=== PATIENT | female | born 1970 | race Caucasian/White ===

== ENCOUNTER 2018-05-11 11:31 | Inpatient (IN) | payer OTHER ==
[~2018-05-11] VITALS: Ht 162.6 cm; Wt 87.3 kg
[~2018-05-11 11:31] MED LIST: AMLO2.5T45 PO; ATOR20TA PO; CYTO5 PO; LEVO100V4 PO; LISI10TA5 PO; OMEP20CA10 PO
[2018-05-11] MEDS ORDERED: SODIUM CHLORIDE 0.9% 1,000 ML IV ONE (11:42)
[2018-05-11 11:59] LABS: EOSINOPHILS % 2.3 % (0.0-5.0); HEMATOCRIT. 25.1 % (36.0-48.0); LYMPHOCYTES % 13.8 % (20.0-50.0); MEAN CORPUSCULAR HEMOGLOBIN 27.4 pg (28.0-32.0); MEAN CORPUSCULAR VOLUME 86.5 fL (81.0-99.0); MEAN PLATELET VOLUME 8.1 fl (7.4-10.4); MONOCYTES % 6.7 % (2.0-8.0); NEUTROPHILS % 76.2 % (40.0-76.0); PLATELET 296 x1000/uL (130-400)
[2018-05-11 12:03] LABS: CHLORIDE 114 mEq/L (98-107)
[2018-05-11 12:06] LABS: PARTIAL THROMBOPLASTIN TIME 28.4 sec (23.4-31.0)
[2018-05-11 12:08] LABS: ETHANOL BLOOD < 10 mg/dL
[2018-05-11 12:34] LABS: T4 FREE 0.42 ng/dL (0.76-1.46)
[2018-05-11 12:37] LABS: HCG SCREEN NEGATIVE
[2018-05-11 14:53] LABS: *AMPHETAMINES SCREEN URINE NEGATIVE (NEGATIVE); *BARBITURATES SCREEN URINE NEGATIVE (NEGATIVE); *BENZODIAZEPINES SCREEN URINE NEGATIVE (NEGATIVE); *COCAINE SCREEN URINE NEGATIVE (NEGATIVE)
[2018-05-11 14:54] LABS: CANNABINOID URINE SCREEN NEGATIVE (NEGATIVE); METHADONE URINE SCREEN NEGATIVE (NEGATIVE); OPIATES URINE SCREEN NEGATIVE (NEGATIVE); PHENCYCLIDINE URINE SCREEN NEGATIVE (NEGATIVE)
[2018-05-11] MEDS ORDERED: ONDANSETRON HCL 4MG/2ML INJ IV PRN (16:30)
[2018-05-11] MEDS ORDERED: ACETAMINOPHEN 325MG TABLET PO PRN (16:30)
[2018-05-11] MEDS ORDERED: CLONIDINE 0.1MG TABLET PO PRN (16:30)
[2018-05-11] MEDS: LEVOTHYROXINE SODIUM 75MCG TABLET PO SCH (17:14)
[2018-05-11 17:37] LABS: TOTAL IRON BINDING CAPACITY 232 ug/dL (250-450)
[2018-05-11 17:40] LABS: CREATINE KINASE 586 IU/L (26-192)
[2018-05-11] MEDS ORDERED: LEVOTHYROXINE SODIUM 100MCG TABLET PO ONE (18:00)
[2018-05-11] MEDS: ATORVASTATIN CALCIUM 20MG TABLET PO SCH (23:44)
[2018-05-12] VITALS (11 sets, daily range): BP systolic 109–156; BP diastolic 50–70
[2018-05-12] MEDS ORDERED: ZOLPIDEM TARTRATE 5MG TABLET PO PRN (00:58)
[2018-05-12] MEDS: OMEPRAZOLE 20MG CAPSULE EXTENDED RELEASE PO SCH (01:56)
[2018-05-12] MEDS ORDERED: HYDR100T26 PO (05:47)
[2018-05-12] MEDS ORDERED: FURO80TA3 PO (05:47)
[2018-05-12] MEDS ORDERED: LIP40 PO (05:47)
[2018-05-12] MEDS ORDERED: GLIP2.5T3 PO (05:47)
[2018-05-12] MEDS: LEVOTHYROXINE SODIUM 75MCG TABLET PO SCH (06:21)
[2018-05-12 07:17] LABS: CHLORIDE 117 mEq/L (98-107)
[2018-05-12 07:30] LABS: PHOSPHORUS 7.9 mg/dL (2.5-4.9)
[2018-05-12] MEDS: DOCUSATE SODIUM 100MG CAPSULE PO SCH ×2 (09:28→18:24)
[2018-05-12] MEDS: AMLODIPINE 5MG TABLET PO SCH ×2 (09:28→21:39)
[2018-05-12] MEDS ORDERED: LEVOTHYROXINE SODIUM 25MCG TABLET PO NR (09:30)
[2018-05-12 10:50] LABS: BASOPHILS % 1.4 % (0.0-2.0); EOSINOPHILS % 3.7 % (0.0-5.0); HEMATOCRIT. 22.1 % (36.0-48.0); LYMPHOCYTES % 18.1 % (20.0-50.0); MEAN CORPUSCULAR HEMOGLOBIN 27.7 pg (28.0-32.0); MEAN CORPUSCULAR VOLUME 86.7 fL (81.0-99.0); MEAN PLATELET VOLUME 8.7 fl (7.4-10.4); NEUTROPHILS % 69.8 % (40.0-76.0); PLATELET 243 x1000/uL (130-400); RED BLOOD CELL COUNT 2.55 mill/uL (4.2-5.4)
[2018-05-12] MEDS ORDERED: FERROUS SULFATE 325MG TABLET PO SCH (12:50)
[2018-05-12] MEDS: GUAIFENESIN-DM 200MG-20MG/10ML UDC PO PRN (13:13)
[2018-05-12] MEDS: FERROUS SULFATE 325MG TABLET PO SCH ×2 (13:13→18:24)
[2018-05-12] MEDS ORDERED: ALBUMIN HUMAN 25GM/100ML (25%) IV NR (14:00)
[2018-05-12 14:27] LABS: BG BASE EXCESS -8.1 mmol/L (-2.0-2.0); BG CARBOXYHEMOGLOBIN 0.7 % (0.5-1.5); BG DEOXYHEMOGLOBIN 7.3 % (0.0-5.0); BG FRACTION INSPIRED OXYGEN 21; BG HCO3 ACT 17.1 mmol/L (22.0-26.0); BG METHEMOGLOBIN 0.1 % (0.0-1.5); BG OXYGEN SATURATION 92.6 % (92.0-98.5); BG OXYHEMOGLOBIN 91.9 % (94.0-97.0); BG PCO2 33.5 mmHg (35.0-45.0); BG PH 7.327 (7.350-7.450); BG PO2 71.3 mmHg (75.0-100.0); BG SAMPLE SITE RIGHT BRACHIAL; BG TOTAL HEMOGLOBIN 6.9 g/dL (12.0-18.0); BG VENT MODE ROOM AIR
[2018-05-12] MEDS: CITRIC ACID/SODIUM CITRATE SOLN 30ML UDC PO SCH ×2 (14:34→18:24)
[2018-05-12] MEDS: DEXT 5%/0.45% NACL 1000ML 1,000 ML IV SCH (14:35)
[2018-05-12 14:50] LABS: CLARITY URINE CLEAR (CLEAR); COLOR URINE YELLOW (YELLOW); KETONES URINE NEGATIVE (NEGATIVE); LEUKOCYTE ESTERASE URINE NEGATIVE (NEGATIVE); NITRITE URINE NEGATIVE (NEGATIVE); OCCULT BLOOD URINE 2+ (NEGATIVE); PH URINE >=9.0 (4.5-8.0); PROTEIN URINE 4+ (NEGATIVE); SPECIFIC GRAVITY URINE 1.018 (1.005-1.030); UROBILINOGEN URINE 0.2 E.U./dL (0.2-1.0)
[2018-05-12] MEDS ORDERED: DOCUSATE SODIUM 100MG CAPSULE PO SCH (17:00)
[2018-05-12] MEDS: CALCIUM ACETATE 667MG CAPSULE PO SCH (18:24)
[2018-05-12 19:35] LABS: HEMATOCRIT 25.9 % (36.0-48.0); HEMOGLOBIN 8.4 g/dL (12.0-16.0)
[2018-05-12 19:47] LABS: PROTHROMBIN TIME 10.3 sec (9.1-11.1)
[2018-05-12] MEDS ORDERED: EPOETIN ALFA 10000UNITS/ML VIAL SUBCUT NR (21:00)
[2018-05-12] MEDS: ATORVASTATIN CALCIUM 20MG TABLET PO SCH (21:39)
[2018-05-13] VITALS: BP 134/55
[2018-05-13] MEDS: GUAIFENESIN-DM 200MG-20MG/10ML UDC PO PRN ×3 (02:17→18:24)
[2018-05-13 04:00] VITALS: BP 152/93
[2018-05-13 06:22] LABS: PHOSPHORUS 7.5 mg/dL (2.5-4.9)
[2018-05-13 06:39] LABS: BASOPHILS % 0.9 % (0.0-2.0); HEMATOCRIT. 22.2 % (36.0-48.0); HEMOGLOBIN. 7.3 g/dL (12.0-16.0); MEAN CORPUSCULAR HEMOGLOBIN 28.1 pg (28.0-32.0); MEAN CORPUSCULAR VOLUME 85.9 fL (81.0-99.0); MEAN PLATELET VOLUME 8.5 fl (7.4-10.4); MONOCYTES % 7.9 % (2.0-8.0); NEUTROPHILS % 68.2 % (40.0-76.0); PLATELET 217 x1000/uL (130-400); RED BLOOD CELL COUNT 2.58 mill/uL (4.2-5.4); RED CELL DISTRIBUTION WIDTH 14.6 % (11.6-14.6)
[2018-05-13] MEDS: LEVOTHYROXINE SODIUM 150MCG TABLET PO SCH (07:13)
[2018-05-13] MEDS: OMEPRAZOLE 20MG CAPSULE EXTENDED RELEASE PO SCH (07:13)
[2018-05-13] MEDS ORDERED: LEVOTHYROXINE SODIUM 100MCG TABLET PO SCH (07:20)
[2018-05-13 07:56] VITALS: BP 142/65
[2018-05-13] MEDS: CALCIUM ACETATE 667MG CAPSULE PO SCH ×3 (08:29→18:24)
[2018-05-13] MEDS: AMLODIPINE 5MG TABLET PO SCH ×2 (08:29→21:01)
[2018-05-13] MEDS: FERROUS SULFATE 325MG TABLET PO SCH ×3 (08:29→18:24)
[2018-05-13] MEDS: CITRIC ACID/SODIUM CITRATE SOLN 30ML UDC PO SCH ×3 (08:29→18:24)
[2018-05-13] MEDS: DOCUSATE SODIUM 100MG CAPSULE PO SCH ×2 (08:32→17:00)
[2018-05-13 12:21] VITALS: BP 181/85
[2018-05-13 15:55] VITALS: BP 140/60
[2018-05-13] MEDS: DEXT 5%/0.45% NACL 1000ML 1,000 ML IV SCH (18:29)
[2018-05-13 20:00] VITALS: BP 159/63
[2018-05-13] MEDS: ATORVASTATIN CALCIUM 20MG TABLET PO SCH (21:00)
[2018-05-14] VITALS (20 sets, daily range): BP systolic 135–177; BP diastolic 56–84
[2018-05-14] MEDS: OMEPRAZOLE 20MG CAPSULE EXTENDED RELEASE PO SCH (06:21)
[2018-05-14] MEDS: LEVOTHYROXINE SODIUM 150MCG TABLET PO SCH (06:21)
[2018-05-14] MEDS ORDERED: CEFAZOLIN 1000MG PREMIX 50 ML IV SCH (06:45)
[2018-05-14] MEDS: DEXT 5%/0.45% NACL 1000ML 1,000 ML IV SCH ×2 (07:00→16:52)
[2018-05-14 07:04] LABS: BASOPHILS % 0.8 % (0.0-2.0); EOSINOPHILS % 3.2 % (0.0-5.0); HEMATOCRIT. 24.7 % (36.0-48.0); MEAN CORPUSCULAR HEMOGLOBIN 27.9 pg (28.0-32.0); MEAN CORPUSCULAR VOLUME 86.5 fL (81.0-99.0); MEAN PLATELET VOLUME 8.5 fl (7.4-10.4); MONOCYTES % 8.5 % (2.0-8.0); NEUTROPHILS % 70.5 % (40.0-76.0); PLATELET 246 x1000/uL (130-400); RED BLOOD CELL COUNT 2.86 mill/uL (4.2-5.4); RED CELL DISTRIBUTION WIDTH 14.9 % (11.6-14.6)
[2018-05-14 07:29] LABS: PHOSPHORUS 6.5 mg/dL (2.5-4.9)
[2018-05-14] MEDS ORDERED: FENTANYL CITRATE/PF 50MCG/ML 2ML VIAL ONE (07:39)
[2018-05-14] MEDS ORDERED: LIDOCAINE HCL 1% 20ML VIAL (Pyxis) INJ ONE (07:39)
[2018-05-14] MEDS ORDERED: CEFAZOLIN 1000MG PREMIX 50 ML IV ONE (07:39)
[2018-05-14] MEDS ORDERED: SODIUM BICARBONATE 4% (2.4MEQ) 5ML VIAL IV ONE (07:39)
[2018-05-14] MEDS ORDERED: FENTANYL CITRATE/PF 50MCG/ML 2ML VIAL IV ONE (08:30)
[2018-05-14] MEDS: DOCUSATE SODIUM 100MG CAPSULE PO SCH ×2 (09:00→16:55)
[2018-05-14] MEDS: CITRIC ACID/SODIUM CITRATE SOLN 30ML UDC PO SCH ×3 (09:00→16:55)
[2018-05-14] MEDS ORDERED: ONDANSETRON HCL 4MG/2ML INJ ONE (09:09)
[2018-05-14] MEDS ORDERED: ONDANSETRON HCL 4MG/2ML INJ IV ONE (09:15)
[2018-05-14] MEDS: FERROUS SULFATE 325MG TABLET PO SCH ×3 (09:32→16:51)
[2018-05-14] MEDS: CALCIUM ACETATE 667MG CAPSULE PO SCH ×3 (09:32→16:51)
[2018-05-14] MEDS: AMLODIPINE 5MG TABLET PO SCH ×2 (09:32→21:10)
[2018-05-14 14:05] LABS: HEPATITIS B SURFACE AB 5.3 mIU/mL
[2018-05-14] MEDS: ATORVASTATIN CALCIUM 20MG TABLET PO SCH (21:10)
[2018-05-14] MEDS: GUAIFENESIN-DM 200MG-20MG/10ML UDC PO PRN (21:10)
[2018-05-15] VITALS: BP 137/62
[2018-05-15 04:00] VITALS: BP 155/72
[2018-05-15] MEDS: OMEPRAZOLE 20MG CAPSULE EXTENDED RELEASE PO SCH (06:26)
[2018-05-15] MEDS: LEVOTHYROXINE SODIUM 150MCG TABLET PO SCH (06:27)
[2018-05-15 06:31] LABS: BASOPHILS % 0.9 % (0.0-2.0); EOSINOPHILS % 3.4 % (0.0-5.0); HEMATOCRIT. 23.1 % (36.0-48.0); HEMOGLOBIN. 7.6 g/dL (12.0-16.0); LYMPHOCYTES % 17.1 % (20.0-50.0); MEAN CORPUSCULAR HEMOGLOBIN 28.1 pg (28.0-32.0); MEAN CORPUSCULAR VOLUME 85.6 fL (81.0-99.0); MEAN PLATELET VOLUME 8.2 fl (7.4-10.4); MONOCYTES % 10.1 % (2.0-8.0); NEUTROPHILS % 68.5 % (40.0-76.0); PLATELET 214 x1000/uL (130-400); RED CELL DISTRIBUTION WIDTH 14.3 % (11.6-14.6)
[2018-05-15 07:13] LABS: PHOSPHORUS 5.2 mg/dL (2.5-4.9)
[2018-05-15 08:26] VITALS: BP 153/70
[2018-05-15] MEDS: FERROUS SULFATE 325MG TABLET PO SCH ×3 (08:57→18:28)
[2018-05-15] MEDS: CITRIC ACID/SODIUM CITRATE SOLN 30ML UDC PO SCH (08:57)
[2018-05-15] MEDS: CALCIUM ACETATE 667MG CAPSULE PO SCH ×3 (08:57→18:28)
[2018-05-15] MEDS: DOCUSATE SODIUM 100MG CAPSULE PO SCH ×2 (08:58→17:00)
[2018-05-15 12:00] VITALS: BP 144/71
[2018-05-15] MEDS: AMLODIPINE 5MG TABLET PO SCH ×2 (12:15→21:32)
[2018-05-15] MEDS: DEXT 5%/0.45% NACL 1000ML 1,000 ML IV SCH ×2 (12:53→21:33)
[2018-05-15 16:00] VITALS: BP 138/43
[2018-05-15 20:00] VITALS: BP_SYST 130; BP_SYST 138; BP_SYST 143; BP_DIAS 63
[2018-05-15] MEDS: ATORVASTATIN CALCIUM 20MG TABLET PO SCH (21:32)
[2018-05-16] VITALS (9 sets, daily range): BP systolic 120–148; BP diastolic 54–70
[2018-05-16] MEDS: LEVOTHYROXINE SODIUM 150MCG TABLET PO SCH (06:04)
[2018-05-16 07:19] LABS: BASOPHILS % 0.9 % (0.0-2.0); HEMOGLOBIN. 7.8 g/dL (12.0-16.0); MEAN CORPUSCULAR HEMOGLOBIN 27.8 pg (28.0-32.0); MEAN CORPUSCULAR VOLUME 85.3 fL (81.0-99.0); MEAN PLATELET VOLUME 8.6 fl (7.4-10.4); MONOCYTES % 9.6 % (2.0-8.0); NEUTROPHILS % 65.5 % (40.0-76.0); PLATELET 229 x1000/uL (130-400); RED BLOOD CELL COUNT 2.82 mill/uL (4.2-5.4); RED CELL DISTRIBUTION WIDTH 14.6 % (11.6-14.6)
[2018-05-16 07:45] LABS: PHOSPHORUS 4.1 mg/dL (2.5-4.9)
[2018-05-16] MEDS: DOCUSATE SODIUM 100MG CAPSULE PO SCH ×2 (09:00→17:00)
[2018-05-16] MEDS: CALCIUM ACETATE 667MG CAPSULE PO SCH ×3 (09:07→18:28)
[2018-05-16] MEDS: FERROUS SULFATE 325MG TABLET PO SCH ×3 (09:07→18:28)
[2018-05-16] MEDS: AMLODIPINE 5MG TABLET PO SCH ×2 (09:08→20:29)
[2018-05-16] MEDS: FAMOTIDINE 20MG TABLET PO SCH (09:08)
[2018-05-16] MEDS: DEXT 5%/0.45% NACL 1000ML 1,000 ML IV SCH (13:49)
[2018-05-16] MEDS: ATORVASTATIN CALCIUM 20MG TABLET PO SCH (20:29)
[2018-05-17 04:00] VITALS: BP 124/61
[2018-05-17] MEDS: DEXT 5%/0.45% NACL 1000ML 1,000 ML IV SCH ×2 (06:15→14:03)
[2018-05-17] MEDS: LEVOTHYROXINE SODIUM 150MCG TABLET PO SCH (06:16)
[2018-05-17 06:49] LABS: BASOPHILS % 0.9 % (0.0-2.0); EOSINOPHILS % 3.9 % (0.0-5.0); HEMATOCRIT. 23.7 % (36.0-48.0); HEMOGLOBIN. 7.8 g/dL (12.0-16.0); LYMPHOCYTES % 17.6 % (20.0-50.0); MEAN CORPUSCULAR HEMOGLOBIN 28.2 pg (28.0-32.0); MEAN CORPUSCULAR VOLUME 85.7 fL (81.0-99.0); MEAN PLATELET VOLUME 8.4 fl (7.4-10.4); MONOCYTES % 7.8 % (2.0-8.0); NEUTROPHILS % 69.8 % (40.0-76.0); PLATELET 236 x1000/uL (130-400); RED BLOOD CELL COUNT 2.76 mill/uL (4.2-5.4); RED CELL DISTRIBUTION WIDTH 14.4 % (11.6-14.6)
[2018-05-17 07:08] LABS: CHLORIDE 109 mEq/L (98-107)
[2018-05-17 07:18] LABS: PHOSPHORUS 4.4 mg/dL (2.5-4.9)
[2018-05-17 08:00] VITALS: BP 158/74
[2018-05-17] MEDS: DOCUSATE SODIUM 100MG CAPSULE PO SCH ×2 (09:00→17:00)
[2018-05-17] MEDS: FERROUS SULFATE 325MG TABLET PO SCH ×2 (09:16→14:01)
[2018-05-17] MEDS: FAMOTIDINE 20MG TABLET PO SCH (09:16)
[2018-05-17] MEDS: CALCIUM ACETATE 667MG CAPSULE PO SCH ×2 (09:16→14:01)
[2018-05-17] MEDS: AMLODIPINE 5MG TABLET PO SCH (09:16)
[2018-05-17 12:00] VITALS: BP 144/63
[2018-05-17 16:00] VITALS: BP 150/74
[2018-05-17 16:38] VITALS: BP 150/74
[2018-05-18 08:14] LABS: ALBUMIN 2.5 g/dL (2.9-4.4); ALPHA-1-GLOBULIN 0.3 g/dL (0.0-0.4); BETA GLOBULIN 0.9 g/dL (0.7-1.3); GAMMA GLOBULINS 0.5 g/dL (0.4-1.8); GLOBULIN TOTAL 2.6 g/dL (2.2-3.9); M-SPIKE Not Observed g/dL (Not Observed); TOTAL PROTEIN SERUM 5.1 g/dL (6.0-8.5)
== END 2018-05-17 17:14 | disposition home or self-care (01) | DRG 48 ==
LOC: ER 11:31 → 6WST 14:17 → EDBEDREQ 14:22 → ENRESERV 22:09
PROVIDERS: ADMIT Internal Medicine; ATTEND Internal Medicine
PROC: 30233N1 Transfusion of Nonautologous Red Blood Cells into Peripheral Vein, Percutaneous Approach (ICD-10-PCS; principal; 2018-05-12)
PROC: 5A1D70Z Performance of Urinary Filtration, Intermittent, Less than 6 Hours Per Day (ICD-10-PCS; 2018-05-13)
PROC: 5A1D70Z Performance of Urinary Filtration, Intermittent, Less than 6 Hours Per Day (ICD-10-PCS; 2018-05-14)
PROC: 02HV33Z Insertion of Infusion Device into Superior Vena Cava, Percutaneous Approach (ICD-10-PCS; 2018-05-14)
PROC: B5181ZA Fluoroscopy of Superior Vena Cava using Low Osmolar Contrast, Guidance (ICD-10-PCS; 2018-05-14)
PROC: B548ZZA Ultrasonography of Superior Vena Cava, Guidance (ICD-10-PCS; 2018-05-14)
PROC: 5A1D70Z Performance of Urinary Filtration, Intermittent, Less than 6 Hours Per Day (ICD-10-PCS; 2018-05-16)
DX: G90.8 Other disorders of autonomic nervous system (principal); E43 Unspecified severe protein-calorie malnutrition; I13.2 Hypertensive heart and chronic kidney disease with heart failure and with stage 5 chronic kidney disease, or end stage renal disease; N17.9 Acute kidney failure, unspecified; E11.22 Type 2 diabetes mellitus with diabetic chronic kidney disease; E87.0 Hyperosmolality and hypernatremia; I27.20 Pulmonary hypertension, unspecified; E88.81 Metabolic syndrome and other insulin resistance; E86.9 Volume depletion, unspecified; E87.2 Acidosis; E87.8 Other disorders of electrolyte and fluid balance, not elsewhere classified; D64.9 Anemia, unspecified; E78.5 Hyperlipidemia, unspecified; E03.9 Hypothyroidism, unspecified; E66.9 Obesity, unspecified; I50.9 Heart failure, unspecified; E05.00 Thyrotoxicosis with diffuse goiter without thyrotoxic crisis or storm; G62.9 Polyneuropathy, unspecified; Z68.33 Body mass index [BMI] 33.0-33.9, adult; E78.00 Pure hypercholesterolemia, unspecified; F41.9 Anxiety disorder, unspecified; N18.6 End stage renal disease; N25.81 Secondary hyperparathyroidism of renal origin; Z79.890 Hormone replacement therapy; Z82.49 Family history of ischemic heart disease and other diseases of the circulatory system; Z89.429 Acquired absence of other toe(s), unspecified side; Z83.3 Family history of diabetes mellitus; Z71.83 Encounter for nonprocreative genetic counseling; Z79.4 Long term (current) use of insulin
CPT/HCPCS: 36415; 36558; 36600; 71045; 76770; 76937; 77001; 80048; 80305; 80307; 80320; 80329; 82375; 82550; 82570; 82728; 82805; 82962; 83036; 83540; 83550; 83735; 83935; 84100; 84155; 84156; 84165; 84300; 84439; 84443; 84703; 85014; 85018; 85049; 85384; 86706; 86803; 86850; 86900; 86920; 87340; 93005; 93306; 93880; 93970; 96374; 96375; 99152; 99153; 99285; C1750; C1769; J0690; J0885; J1642; J2405; J3010; J3490; J7030; J7050; P9016; P9047; G0480; G0500

== ENCOUNTER 2018-08-24 08:11 | Inpatient (IN) | payer MEDICARE, OTHER ==
[~2018-08-24] VITALS: Ht 152.4 cm; Wt 74.4 kg
[~2018-08-24 08:11] MED LIST changes: -AMLO2.5T45 PO; -ATOR20TA PO; +FURO80TA3 PO; +GLIP2.5T3 PO; +HYDR100T26 PO; +LIP40 PO; -LISI10TA5 PO; -OMEP20CA10 PO
[2018-08-24] MEDS ORDERED: LEVETIRACETAM 1000MG/100ML 100 ML IV ONE (08:30)
[2018-08-24 08:45] LABS: EOSINOPHILS % 1.3 % (0.0-5.0); HEMATOCRIT. 39.3 % (36.0-48.0); HEMOGLOBIN. 12.9 g/dL (12.0-16.0); LYMPHOCYTES % 20.4 % (20.0-50.0); MEAN CORPUSCULAR HEMOGLOBIN 28.2 pg (28.0-32.0); MEAN CORPUSCULAR VOLUME 85.8 fL (81.0-99.0); MEAN PLATELET VOLUME 7.7 fl (7.4-10.4); MONOCYTES % 5.5 % (2.0-8.0); NEUTROPHILS % 71.8 % (40.0-76.0); PLATELET 238 x1000/uL (130-400); RED BLOOD CELL COUNT 4.58 mill/uL (4.2-5.4); RED CELL DISTRIBUTION WIDTH 14.1 % (11.6-14.6)
[2018-08-24 08:48] LABS: CHLORIDE 102 mEq/L (98-107)
[2018-08-24 08:50] LABS: PROTHROMBIN TIME 10.2 sec (9.6-11.0)
[2018-08-24] MEDS: LEVOTHYROXINE SODIUM 75MCG TABLET PO SCH (09:00)
[2018-08-24] MEDS ORDERED: ONDANSETRON HCL 4MG/2ML INJ IV ONE (10:00)
[2018-08-24] MEDS: LOSARTAN POTASSIUM 50 MG TABLET PO SCH (10:21)
[2018-08-24 13:00] VITALS: BP 145/87
[2018-08-24] MEDS ORDERED: MAGNESIUM/ALUMINUM HYDROXIDE/SIMETHICONE 30ML UDC PO PRN (13:00)
[2018-08-24] MEDS ORDERED: ACETAMINOPHEN 325MG TABLET PO PRN (13:00)
[2018-08-24] MEDS ORDERED: GUAIFENESIN 200MG/10ML SUGAR FREE UDC PO PRN (13:00)
[2018-08-24] MEDS ORDERED: DOCUSATE SODIUM 100MG CAPSULE PO PRN (13:00)
[2018-08-24] MEDS ORDERED: IPRATROPIUM/ALBUTEROL 0.5-3(2.5)MG/3ML NEB INH PRN (13:00)
[2018-08-24] MEDS ORDERED: ONDANSETRON HCL 4MG/2ML INJ IV PRN (13:00)
[2018-08-24] MEDS ORDERED: ZOLPIDEM TARTRATE 5MG TABLET PO PRN (13:00)
[2018-08-24] MEDS ORDERED: NITROGLYCERIN 0.4MG TABLET SL SL PRN (13:00)
[2018-08-24] MEDS ORDERED: TRAMADOL 50MG TABLET PO PRN (13:00)
[2018-08-24] MEDS ORDERED: ENOXAPARIN 40MG/0.4ML SYR SUBCUT SCH (13:00)
[2018-08-24] MEDS ORDERED: DEXTROSE 50% WATER 50ML SYRINGE IV PRN (15:00)
[2018-08-24] MEDS: FAMOTIDINE 20MG TABLET PO SCH (15:35)
[2018-08-24] MEDS: SEVELAMER CARBONATE 800 MG TABLET PO SCH ×2 (15:35→17:49)
[2018-08-24] MEDS: ENOXAPARIN 30MG/0.3ML SYR SUBCUT SCH (15:36)
[2018-08-24 15:41] LABS: CREATINE KINASE MB FRACTION 4.7 ng/mL (0.5-3.6)
[2018-08-24 16:00] VITALS: BP 142/70
[2018-08-24] MEDS: BLOOD SUGAR DIAGNOSTIC STRIP TEST SCH ×2 (17:12→20:21)
[2018-08-24] MEDS: INSULIN LISPRO 100 UNITS/ML SUBCUT SCH ×2 (17:49→20:52)
[2018-08-24 20:00] VITALS: BP 117/58
[2018-08-24] MEDS ORDERED: FAMOTIDINE 20MG TABLET PO SCH (21:00)
[2018-08-24] MEDS: LEVETIRACETAM 500MG TABLET PO SCH (21:49)
[2018-08-24 23:18] LABS: CREATINE KINASE MB FRACTION 3.3 ng/mL (0.5-3.6)
[2018-08-24 23:18] LABS: *AMPHETAMINES SCREEN URINE NEGATIVE (NEGATIVE); *BARBITURATES SCREEN URINE NEGATIVE (NEGATIVE); *BENZODIAZEPINES SCREEN URINE NEGATIVE (NEGATIVE); *COCAINE SCREEN URINE NEGATIVE (NEGATIVE); METHADONE URINE SCREEN NEGATIVE (NEGATIVE); OPIATES URINE SCREEN NEGATIVE (NEGATIVE)
[2018-08-24 23:19] LABS: CANNABINOID URINE SCREEN NEGATIVE (NEGATIVE); PHENCYCLIDINE URINE SCREEN NEGATIVE (NEGATIVE)
[2018-08-25] VITALS: BP 163/77
[2018-08-25] MEDS: CLONIDINE 0.1MG TABLET PO PRN ×2 (01:11→12:27)
[2018-08-25] MEDS: LEVOTHYROXINE SODIUM 75MCG TABLET PO SCH (06:33)
[2018-08-25] MEDS: BLOOD SUGAR DIAGNOSTIC STRIP TEST SCH ×4 (06:33→21:00)
[2018-08-25] MEDS: INSULIN LISPRO 100 UNITS/ML SUBCUT SCH ×4 (06:44→23:21)
[2018-08-25 07:10] LABS: EOSINOPHILS % 1.6 % (0.0-5.0); HEMATOCRIT. 32.6 % (36.0-48.0); HEMOGLOBIN. 10.5 g/dL (12.0-16.0); LYMPHOCYTES % 23.8 % (20.0-50.0); MEAN CORPUSCULAR HEMOGLOBIN 28.1 pg (28.0-32.0); MEAN CORPUSCULAR VOLUME 86.9 fL (81.0-99.0); MEAN PLATELET VOLUME 8.6 fl (7.4-10.4); MONOCYTES % 8.3 % (2.0-8.0); NEUTROPHILS % 65.3 % (40.0-76.0); PLATELET 201 x1000/uL (130-400); RED BLOOD CELL COUNT 3.75 mill/uL (4.2-5.4); RED CELL DISTRIBUTION WIDTH 14.3 % (11.6-14.6)
[2018-08-25 07:14] LABS: PHOSPHORUS 5.5 mg/dL (2.5-4.9)
[2018-08-25 08:00] VITALS: BP 163/65
[2018-08-25] MEDS: LOSARTAN POTASSIUM 50 MG TABLET PO SCH (09:00)
[2018-08-25] MEDS: SEVELAMER CARBONATE 800 MG TABLET PO SCH ×3 (09:40→18:01)
[2018-08-25] MEDS: LEVETIRACETAM 500MG TABLET PO SCH ×2 (09:41→23:16)
[2018-08-25] MEDS: FOLIC ACID/VITAMIN B COMP W-C TABLET PO SCH (09:41)
[2018-08-25] MEDS: FAMOTIDINE 20MG TABLET PO SCH (09:41)
[2018-08-25] MEDS: ENOXAPARIN 30MG/0.3ML SYR SUBCUT SCH (09:42)
[2018-08-25] MEDS: ASPIRIN 325MG EC TABLET PO SCH (09:46)
[2018-08-25 11:53] VITALS: BP 181/89
[2018-08-25 16:00] VITALS: BP 87/52
[2018-08-25 20:43] VITALS: BP 172/79
[2018-08-26 00:39] VITALS: BP 113/68
[2018-08-26 04:00] VITALS: BP 159/72
[2018-08-26] MEDS: BLOOD SUGAR DIAGNOSTIC STRIP TEST SCH (06:14)
[2018-08-26] MEDS: INSULIN LISPRO 100 UNITS/ML SUBCUT SCH (06:21)
[2018-08-26] MEDS ORDERED: LEVOTHYROXINE SODIUM 100MCG TABLET PO SCH (07:10)
[2018-08-26 08:00] VITALS: BP 174/67
[2018-08-26 08:05] LABS: BASOPHILS % 0.9 % (0.0-2.0); EOSINOPHILS % 3.5 % (0.0-5.0); HEMATOCRIT. 36.2 % (36.0-48.0); HEMOGLOBIN. 11.9 g/dL (12.0-16.0); LYMPHOCYTES % 21.4 % (20.0-50.0); MEAN CORPUSCULAR HEMOGLOBIN 28.6 pg (28.0-32.0); MEAN CORPUSCULAR VOLUME 87.1 fL (81.0-99.0); MEAN PLATELET VOLUME 8.4 fl (7.4-10.4); MONOCYTES % 6.3 % (2.0-8.0); NEUTROPHILS % 67.9 % (40.0-76.0); PLATELET 233 x1000/uL (130-400); RED BLOOD CELL COUNT 4.15 mill/uL (4.2-5.4); RED CELL DISTRIBUTION WIDTH 14.5 % (11.6-14.6)
[2018-08-26 08:15] LABS: PHOSPHORUS 4.4 mg/dL (2.5-4.9)
[2018-08-26] MEDS: SEVELAMER CARBONATE 800 MG TABLET PO SCH (09:16)
[2018-08-26] MEDS: ASPIRIN 325MG EC TABLET PO SCH (09:17)
[2018-08-26] MEDS: FOLIC ACID/VITAMIN B COMP W-C TABLET PO SCH (09:17)
[2018-08-26] MEDS: LEVETIRACETAM 500MG TABLET PO SCH (09:17)
[2018-08-26] MEDS: LOSARTAN POTASSIUM 50 MG TABLET PO SCH (09:17)
[2018-08-26] MEDS: FAMOTIDINE 20MG TABLET PO SCH (09:17)
[2018-08-26] MEDS: ENOXAPARIN 30MG/0.3ML SYR SUBCUT SCH (09:19)
[2018-08-26 10:21] VITALS: BP 150/82
[2018-09-02] MEDS ORDERED: KEPP500 MT (09:09)
== END 2018-08-26 11:59 | disposition home or self-care (01) | DRG 100 ==
LOC: ER 08:11 → 8WST 10:23 → ENRESERV 11:42
PROVIDERS: ADMIT Internal Medicine; ATTEND Internal Medicine
PROC: 5A1D70Z Performance of Urinary Filtration, Intermittent, Less than 6 Hours Per Day (ICD-10-PCS; principal; 2018-08-24)
PROC: 5A1D70Z Performance of Urinary Filtration, Intermittent, Less than 6 Hours Per Day (ICD-10-PCS; 2018-08-26)
DX: R56.9 Unspecified convulsions (principal); G92 Toxic encephalopathy; N18.6 End stage renal disease; E44.0 Moderate protein-calorie malnutrition; I12.0 Hypertensive chronic kidney disease with stage 5 chronic kidney disease or end stage renal disease; D63.8 Anemia in other chronic diseases classified elsewhere; E03.9 Hypothyroidism, unspecified; E11.22 Type 2 diabetes mellitus with diabetic chronic kidney disease; E11.40 Type 2 diabetes mellitus with diabetic neuropathy, unspecified; E78.5 Hyperlipidemia, unspecified; E83.51 Hypocalcemia; E87.6 Hypokalemia; Z79.4 Long term (current) use of insulin; Z82.49 Family history of ischemic heart disease and other diseases of the circulatory system; Z79.899 Other long term (current) drug therapy; Z83.3 Family history of diabetes mellitus; Z99.2 Dependence on renal dialysis; Z68.32 Body mass index [BMI] 32.0-32.9, adult
CPT/HCPCS: 36415; 70551; 71045; 80048; 80061; 80305; 82550; 82553; 82962; 83036; 83735; 84100; 84443; 84484; 93005; 93306; 93970; 96365; 99285; J1650; J1815; J1953; J2405

== ENCOUNTER 2018-08-27 07:07 | Emergency (ER) | payer MEDICARE ==
[~2018-08-27] VITALS: Ht 162.6 cm; Wt 66.0 kg
[2018-08-27] MEDS ORDERED: ONDANSETRON HCL 4MG/2ML INJ IV STA (07:13)
[2018-08-27 08:11] LABS: BASOPHILS % 0.7 % (0.0-2.0); HEMATOCRIT. 36.1 % (36.0-48.0); LYMPHOCYTES % 14.5 % (20.0-50.0); MEAN CORPUSCULAR HEMOGLOBIN 28.6 pg (28.0-32.0); MEAN PLATELET VOLUME 8.2 fl (7.4-10.4); MONOCYTES % 4.4 % (2.0-8.0); NEUTROPHILS % 77.4 % (40.0-76.0); PLATELET 232 x1000/uL (130-400)
[2018-08-27 08:18] LABS: CHLORIDE 103 mEq/L (98-107)
[2018-08-27 08:23] LABS: ETHANOL BLOOD < 10 mg/dL
[2018-08-27 10:00] VITALS: BP 160/86
[2018-09-02] MEDS ORDERED: KEPP500 MT (09:09)
== END 2018-08-27 10:30 | disposition left against medical advice (07) ==
LOC: ER 07:07
DX: R41.82 Altered mental status, unspecified (principal); R10.13 Epigastric pain; E78.00 Pure hypercholesterolemia, unspecified; E03.9 Hypothyroidism, unspecified; E11.22 Type 2 diabetes mellitus with diabetic chronic kidney disease; I12.0 Hypertensive chronic kidney disease with stage 5 chronic kidney disease or end stage renal disease; N18.6 End stage renal disease; Z99.2 Dependence on renal dialysis; Z79.899 Other long term (current) drug therapy
CPT/HCPCS: 36415; 70450; 74176; 80053; 80320; 84484; 85025; 93005; 96374; 99284; J2405; G0480

== ENCOUNTER 2018-08-31 09:02 | Inpatient (IN) | payer MEDICARE, OTHER ==
[~2018-08-31] VITALS: Ht 152.4 cm; Wt 78.0 kg
[2018-08-31 10:19] LABS: EOSINOPHILS % 3.6 % (0.0-5.0); HEMOGLOBIN. 11.2 g/dL (12.0-16.0); LYMPHOCYTES % 18.9 % (20.0-50.0); MEAN CORPUSCULAR HEMOGLOBIN 28.4 pg (28.0-32.0); MEAN PLATELET VOLUME 8.1 fl (7.4-10.4); MONOCYTES % 9.7 % (2.0-8.0); NEUTROPHILS % 66.8 % (40.0-76.0); PLATELET 228 x1000/uL (130-400); RED BLOOD CELL COUNT 3.95 mill/uL (4.2-5.4); RED CELL DISTRIBUTION WIDTH 14.5 % (11.6-14.6)
[2018-08-31 10:26] LABS: CHLORIDE 105 mEq/L (98-107)
[2018-08-31 10:30] LABS: ETHANOL BLOOD < 10 mg/dL
[2018-08-31 10:41] LABS: CLARITY URINE CLOUDY (CLEAR); COLOR URINE YELLOW (YELLOW); KETONES URINE NEGATIVE (NEGATIVE); LEUKOCYTE ESTERASE URINE TRACE (NEGATIVE); NITRITE URINE NEGATIVE (NEGATIVE); OCCULT BLOOD URINE NEGATIVE (NEGATIVE); PH URINE 8.5 (4.5-8.0); PROTEIN URINE 4+ (NEGATIVE); SPECIFIC GRAVITY URINE 1.016 (1.005-1.030); UROBILINOGEN URINE 0.2 E.U./dL (0.2-1.0)
[2018-08-31 11:07] LABS: *BENZODIAZEPINES SCREEN URINE NEGATIVE (NEGATIVE); *COCAINE SCREEN URINE NEGATIVE (NEGATIVE); METHADONE URINE SCREEN NEGATIVE (NEGATIVE); OPIATES URINE SCREEN NEGATIVE (NEGATIVE)
[2018-08-31 11:08] LABS: *AMPHETAMINES SCREEN URINE NEGATIVE (NEGATIVE); *BARBITURATES SCREEN URINE NEGATIVE (NEGATIVE); CANNABINOID URINE SCREEN NEGATIVE (NEGATIVE); PHENCYCLIDINE URINE SCREEN NEGATIVE (NEGATIVE)
[2018-08-31] MEDS ORDERED: AMLODIPINE 10MG TABLET PO ONE (13:00)
[2018-08-31] MEDS ORDERED: LABETALOL 5MG/ML SYR 20 MG/4 ML SYRINGE IV ONE (16:30)
[2018-08-31] MEDS ORDERED: DOCUSATE SODIUM 100MG CAPSULE PO PRN (18:30)
[2018-08-31] MEDS ORDERED: DIPHENHYDRAMINE 50MG/ML VIAL IV PRN (18:30)
[2018-08-31] MEDS ORDERED: ACETAMINOPHEN 650MG SUPP PR PRN (18:30)
[2018-08-31] MEDS ORDERED: MAGNESIUM/ALUMINUM HYDROXIDE/SIMETHICONE 30ML UDC PO PRN (18:30)
[2018-08-31] MEDS ORDERED: ACETAMINOPHEN 325MG TABLET PO PRN (18:30)
[2018-08-31] MEDS ORDERED: NA PHOS,M-B/NA PHOS,DI-BA ENEMA 118ML PR PRN (18:30)
[2018-08-31] MEDS ORDERED: ACETAMINOPHEN 650MG/20.3ML UDC GT PRN (18:30)
[2018-08-31] MEDS ORDERED: GUAIFENESIN 200MG/10ML SUGAR FREE UDC PO PRN (18:30)
[2018-08-31] MEDS ORDERED: ONDANSETRON HCL 4MG/2ML INJ IV PRN (18:30)
[2018-08-31] MEDS: CLONIDINE 0.1MG TABLET PO PRN (20:34)
[2018-08-31 21:40] VITALS: BP 155/75
[2018-08-31] MEDS ORDERED: SODIUM CHLORIDE 0.9% 1,000 ML IV SCH (22:30)
[2018-09-01] VITALS: BP 126/88
[2018-09-01 04:00] VITALS: BP 137/78
[2018-09-01] MEDS: SODIUM CHLORIDE 0.9% INJ 3ML FLUSH IVF SCH ×3 (06:50→21:52)
[2018-09-01 07:13] LABS: BASOPHILS % 0.9 % (0.0-2.0); EOSINOPHILS % 3.4 % (0.0-5.0); HEMATOCRIT. 34.6 % (36.0-48.0); HEMOGLOBIN. 11.4 g/dL (12.0-16.0); MEAN CORPUSCULAR HEMOGLOBIN 28.7 pg (28.0-32.0); MEAN CORPUSCULAR VOLUME 87.4 fL (81.0-99.0); MEAN PLATELET VOLUME 8.1 fl (7.4-10.4); MONOCYTES % 10.3 % (2.0-8.0); NEUTROPHILS % 60.4 % (40.0-76.0); PLATELET 216 x1000/uL (130-400); RED BLOOD CELL COUNT 3.96 mill/uL (4.2-5.4); RED CELL DISTRIBUTION WIDTH 14.5 % (11.6-14.6)
[2018-09-01 07:40] LABS: CHLORIDE 108 mEq/L (98-107)
[2018-09-01] MEDS ORDERED: DEXTROSE 50% WATER 50ML SYRINGE IV PRN (07:45)
[2018-09-01 08:00] VITALS: BP 160/64
[2018-09-01 08:02] LABS: PHOSPHORUS 5.3 mg/dL (2.5-4.9)
[2018-09-01 08:04] LABS: LDL CHOLESTEROL 115 mg/dL (5-100)
[2018-09-01 08:05] LABS: HDL CHOLESTEROL 59 mg/dL (40-59)
[2018-09-01] MEDS: BLOOD SUGAR DIAGNOSTIC STRIP TEST SCH ×4 (08:06→21:52)
[2018-09-01] MEDS: INSULIN LISPRO 100 UNITS/ML SUBCUT SCH ×4 (08:07→21:00)
[2018-09-01] MEDS: ENOXAPARIN 30MG/0.3ML SYR SUBCUT SCH (08:14)
[2018-09-01] MEDS: LEVETIRACETAM 500MG TABLET PO SCH ×2 (10:29→21:51)
[2018-09-01 11:37] VITALS: BP 144/63
[2018-09-01 16:00] VITALS: BP 147/75
[2018-09-01 20:00] VITALS: BP 167/68
[2018-09-02] VITALS: BP 167/64
[2018-09-02] MEDS: CLONIDINE 0.1MG TABLET PO PRN (00:46)
[2018-09-02 01:46] VITALS: BP 157/63
[2018-09-02 04:00] VITALS: BP 132/45
[2018-09-02] MEDS: SODIUM CHLORIDE 0.9% INJ 3ML FLUSH IVF SCH (06:48)
[2018-09-02] MEDS: BLOOD SUGAR DIAGNOSTIC STRIP TEST SCH (06:48)
[2018-09-02] MEDS: INSULIN LISPRO 100 UNITS/ML SUBCUT SCH (06:57)
[2018-09-02 07:55] VITALS: BP 131/85
[2018-09-02] MEDS: LEVETIRACETAM 500MG TABLET PO SCH (08:51)
[2018-09-02] MEDS: ENOXAPARIN 30MG/0.3ML SYR SUBCUT SCH (08:51)
[2018-09-02] MEDS ORDERED: KEPP500 MT (09:09)
[2018-09-02 09:55] VITALS: BP 131/85
== END 2018-09-02 12:17 | disposition home or self-care (01) | DRG 100 ==
LOC: ER 09:02 → EDBEDREQ 12:58 → CANRESERV 15:54 → ENRESERV 15:54 → 8WST 17:48 → ENRESERV 20:19
PROVIDERS: ADMIT Family Medicine; ATTEND Family Medicine
DX: G40.909 Epilepsy, unspecified, not intractable, without status epilepticus (principal); N18.6 End stage renal disease; N25.81 Secondary hyperparathyroidism of renal origin; I12.0 Hypertensive chronic kidney disease with stage 5 chronic kidney disease or end stage renal disease; E11.9 Type 2 diabetes mellitus without complications; E03.9 Hypothyroidism, unspecified; E05.90 Thyrotoxicosis, unspecified without thyrotoxic crisis or storm; E66.9 Obesity, unspecified; E11.65 Type 2 diabetes mellitus with hyperglycemia; F32.9 Major depressive disorder, single episode, unspecified; E78.5 Hyperlipidemia, unspecified; D64.9 Anemia, unspecified; E11.22 Type 2 diabetes mellitus with diabetic chronic kidney disease; E11.42 Type 2 diabetes mellitus with diabetic polyneuropathy; Z91.14 Patient's other noncompliance with medication regimen; Z89.422 Acquired absence of other left toe(s); Z79.890 Hormone replacement therapy; Z68.33 Body mass index [BMI] 33.0-33.9, adult; Z79.899 Other long term (current) drug therapy; Z99.2 Dependence on renal dialysis
CPT/HCPCS: 36415; 71045; 80048; 80061; 80305; 80320; 82962; 83735; 83880; 84100; 84484; 93005; 99285; J1650; J1815; J3490; G0480

== ENCOUNTER 2019-03-04 04:32 | Emergency (ER) | payer MEDICARE, OTHER ==
[~2019-03-04] VITALS: Ht 160 cm; Wt 82.0 kg
[~2019-03-04 04:32] MED LIST changes: +KEPP500 MT
[2019-03-04 04:55] VITALS: BP 145/90
== END 2019-03-04 08:32 | disposition left against medical advice (07) ==
LOC: ER 04:32
DX: Z53.21 Procedure and treatment not carried out due to patient leaving prior to being seen by health care provider (principal)

== ENCOUNTER 2019-10-09 07:22 | Inpatient (IN) | payer MEDICARE, OTHER ==
[~2019-10-09] VITALS: Ht 152.4 cm; Wt 84.4 kg
[2019-10-09] MEDS ORDERED: MORPHINE SULFATE 4 MG/ML CPJ (NOT FOR IM USE) IV STA (07:53)
[2019-10-09 08:09] LABS: HEMATOCRIT. 38.3 % (36.0-48.0); HEMOGLOBIN. 12.5 g/dL (12.0-16.0); MEAN CORPUSCULAR VOLUME 94.6 fL (81.0-99.0); MEAN PLATELET VOLUME 7.9 fl (7.4-10.4); PLATELET 204 x1000/uL (130-400); RED BLOOD CELL COUNT 4.05 mill/uL (4.2-5.4); RED CELL DISTRIBUTION WIDTH 16.1 % (11.6-14.6)
[2019-10-09 08:18] LABS: CHLORIDE 103 mEq/L (98-107)
[2019-10-09 08:59] LABS: PLATELET ESTIMATE NORMAL
[2019-10-09] MEDS ORDERED: HYDRALAZINE 20MG/ML VIAL IV ONE (09:15)
[2019-10-09] MEDS ORDERED: ASPIRIN 325MG EC TABLET PO ONE (09:15)
[2019-10-09] MEDS ORDERED: TRAMADOL 50MG TABLET PO PRN (11:30)
[2019-10-09] MEDS ORDERED: ACETAMINOPHEN 325MG TABLET PO PRN ×2 (11:30)
[2019-10-09] MEDS ORDERED: DIPHENHYDRAMINE 50MG/ML VIAL IV PRN (11:30)
[2019-10-09] MEDS ORDERED: IPRATROPIUM/ALBUTEROL 0.5-3(2.5)MG/3ML NEB ORI PRN (11:30)
[2019-10-09] MEDS ORDERED: NITROGLYCERIN 0.4MG TABLET SL SL PRN (11:30)
[2019-10-09] MEDS ORDERED: CLONIDINE 0.1MG TABLET PO PRN (11:30)
[2019-10-09] MEDS ORDERED: ONDANSETRON HCL 4MG/2ML INJ IV PRN (11:30)
[2019-10-09] MEDS ORDERED: ZOLPIDEM TARTRATE 5MG TABLET PO PRN (11:30)
[2019-10-09] MEDS ORDERED: ENOXAPARIN 40MG/0.4ML SYR SUBCUT SCH (11:30)
[2019-10-09] MEDS ORDERED: DEXTROSE 50% WATER 50ML SYRINGE IV PRN (11:30)
[2019-10-09] MEDS ORDERED: MAGNESIUM/ALUMINUM HYDROXIDE/SIMETHICONE 30ML UDC PO PRN (11:30)
[2019-10-09] MEDS ORDERED: DOCUSATE SODIUM 100MG CAPSULE PO PRN (11:30)
[2019-10-09] MEDS ORDERED: GUAIFENESIN 200MG/10ML SUGAR FREE UDC PO PRN (11:30)
[2019-10-09] MEDS: BLOOD SUGAR DIAGNOSTIC STRIP TEST SCH ×3 (11:45→20:23)
[2019-10-09 12:00] VITALS: BP 195/87
[2019-10-09] MEDS: LEVETIRACETAM 500MG TABLET PO SCH ×3 (12:00→20:50)
[2019-10-09] MEDS: INSULIN LISPRO 100 UNITS/ML SUBCUT SCH ×3 (12:15→20:52)
[2019-10-09] MEDS: FAMOTIDINE 20MG TABLET PO SCH (13:33)
[2019-10-09] MEDS: SEVELAMER CARBONATE 800 MG TABLET PO SCH ×2 (13:33→17:56)
[2019-10-09] MEDS: ENOXAPARIN 30MG/0.3ML SYR SUBCUT SCH (13:34)
[2019-10-09 14:00] VITALS: BP 195/87
[2019-10-09] MEDS ORDERED: PNEUMOCOCCAL 23-VAL P-SAC VAC 0.5 ML IM ONE (15:00)
[2019-10-09 16:00] VITALS: BP 196/79
[2019-10-09] MEDS: AMLODIPINE 10MG TABLET PO SCH (16:00)
[2019-10-09] MEDS: HYDRALAZINE HCL 100MG TABLET PO SCH ×2 (16:01→20:50)
[2019-10-09 17:06] LABS: CREATINE KINASE MB FRACTION 2.6 ng/mL (0.5-3.6)
[2019-10-09] MEDS ORDERED: CLONIDINE 0.2MG TABLET PO PRN (17:30)
[2019-10-09 20:00] VITALS: BP 127/55
[2019-10-09] MEDS: ASCORBIC ACID 500 MG TABLET PO SCH (20:51)
[2019-10-10] VITALS: BP 123/49
[2019-10-10 04:00] VITALS: BP 131/55
[2019-10-10] MEDS: INSULIN LISPRO 100 UNITS/ML SUBCUT SCH ×4 (06:43→21:00)
[2019-10-10] MEDS: BLOOD SUGAR DIAGNOSTIC STRIP TEST SCH ×4 (06:43→21:10)
[2019-10-10] MEDS: SEVELAMER CARBONATE 800 MG TABLET PO SCH ×3 (06:46→17:02)
[2019-10-10] MEDS: LEVOTHYROXINE SODIUM 100MCG TABLET PO SCH (06:46)
[2019-10-10 08:27] LABS: BASOPHILS % 0.8 % (0.0-2.0); EOSINOPHILS % 2.9 % (0.0-5.0); HEMATOCRIT. 36.7 % (36.0-48.0); HEMOGLOBIN. 11.6 g/dL (12.0-16.0); MEAN CORPUSCULAR HEMOGLOBIN 30.5 pg (28.0-32.0); MEAN CORPUSCULAR VOLUME 96.5 fL (81.0-99.0); MEAN PLATELET VOLUME 8.4 fl (7.4-10.4); NEUTROPHILS % 74.3 % (40.0-76.0); PLATELET 189 x1000/uL (130-400); RED CELL DISTRIBUTION WIDTH 15.7 % (11.6-14.6)
[2019-10-10 08:55] LABS: PHOSPHORUS 8.3 mg/dL (2.5-4.9)
[2019-10-10] MEDS: ASPIRIN 325MG EC TABLET PO SCH (09:09)
[2019-10-10] MEDS: ENOXAPARIN 30MG/0.3ML SYR SUBCUT SCH (09:09)
[2019-10-10] MEDS: AMLODIPINE 10MG TABLET PO SCH (09:10)
[2019-10-10] MEDS: ASCORBIC ACID 500 MG TABLET PO SCH ×2 (09:10→21:09)
[2019-10-10] MEDS: LEVETIRACETAM 500MG TABLET PO SCH ×2 (09:10→21:09)
[2019-10-10] MEDS: FAMOTIDINE 20MG TABLET PO SCH (09:10)
[2019-10-10] MEDS: HYDRALAZINE HCL 100MG TABLET PO SCH ×2 (09:10→21:10)
[2019-10-10] MEDS: ZINC SULFATE 220 MG ( 50 ) CAPSULE PO SCH (09:10)
[2019-10-10 12:00] VITALS: BP 126/57
[2019-10-10 13:48] VITALS: BP 131/89
[2019-10-10] MEDS ORDERED: SODIUM POLYSTYRENE SULFONATE 15 G/60 ML BOT PO SCH (14:00)
[2019-10-10 16:00] VITALS: BP 104/41
[2019-10-10 20:00] VITALS: BP 127/61
[2019-10-11] VITALS: BP 119/53
[2019-10-11 04:00] VITALS: BP 105/49
[2019-10-11] MEDS: SEVELAMER CARBONATE 800 MG TABLET PO SCH ×2 (05:59→15:55)
[2019-10-11] MEDS: LEVOTHYROXINE SODIUM 100MCG TABLET PO SCH (05:59)
[2019-10-11] MEDS: INSULIN LISPRO 100 UNITS/ML SUBCUT SCH ×2 (06:08→12:15)
[2019-10-11] MEDS: BLOOD SUGAR DIAGNOSTIC STRIP TEST SCH ×2 (06:08→11:49)
[2019-10-11 06:54] LABS: BASOPHILS % 0.6 % (0.0-2.0); EOSINOPHILS % 3.5 % (0.0-5.0); HEMATOCRIT. 33.6 % (36.0-48.0); HEMOGLOBIN. 10.7 g/dL (12.0-16.0); LYMPHOCYTES % 13.9 % (20.0-50.0); MEAN CORPUSCULAR HEMOGLOBIN 30.4 pg (28.0-32.0); MEAN PLATELET VOLUME 8.3 fl (7.4-10.4); MONOCYTES % 9.2 % (2.0-8.0); NEUTROPHILS % 72.8 % (40.0-76.0); PLATELET 173 x1000/uL (130-400); RED BLOOD CELL COUNT 3.53 mill/uL (4.2-5.4); RED CELL DISTRIBUTION WIDTH 15.4 % (11.6-14.6)
[2019-10-11 07:44] LABS: PHOSPHORUS 8.9 mg/dL (2.5-4.9)
[2019-10-11 08:00] VITALS: BP 136/60
[2019-10-11] MEDS: LEVETIRACETAM 500MG TABLET PO SCH (09:00)
[2019-10-11] MEDS: ENOXAPARIN 30MG/0.3ML SYR SUBCUT SCH (09:44)
[2019-10-11 12:00] VITALS: BP 139/65
[2019-10-11 15:39] VITALS: BP 150/74
[2019-10-11 15:40] VITALS: BP 150/74
[2019-10-11] MEDS: FAMOTIDINE 20MG TABLET PO SCH (15:55)
[2019-10-11] MEDS: AMLODIPINE 10MG TABLET PO SCH (15:56)
[2019-10-11] MEDS: HYDRALAZINE HCL 100MG TABLET PO SCH (15:56)
[2019-10-11] MEDS: ZINC SULFATE 220 MG ( 50 ) CAPSULE PO SCH (15:56)
[2019-10-11] MEDS: ASCORBIC ACID 500 MG TABLET PO SCH (15:56)
[2019-10-11] MEDS: ASPIRIN 325MG EC TABLET PO SCH (15:56)
== END 2019-10-11 16:07 | disposition home or self-care (01) | DRG 205 ==
LOC: ER 07:22 → EDBEDREQTM 09:35 → EDBEDREQ 09:35 → ENRESERV 10:08 → ER 10:41 → 5WST 10:50 → SUPCPDRO 10:59
PROVIDERS: ADMIT Internal Medicine; ATTEND Internal Medicine
PROC: 5A1D70Z Performance of Urinary Filtration, Intermittent, Less than 6 Hours Per Day (ICD-10-PCS; principal; 2019-10-11)
DX: M94.0 Chondrocostal junction syndrome [Tietze] (principal); N18.6 End stage renal disease; I24.9 Acute ischemic heart disease, unspecified; I13.2 Hypertensive heart and chronic kidney disease with heart failure and with stage 5 chronic kidney disease, or end stage renal disease; E87.1 Hypo-osmolality and hyponatremia; N25.81 Secondary hyperparathyroidism of renal origin; I50.30 Unspecified diastolic (congestive) heart failure; E78.00 Pure hypercholesterolemia, unspecified; E11.22 Type 2 diabetes mellitus with diabetic chronic kidney disease; E11.40 Type 2 diabetes mellitus with diabetic neuropathy, unspecified; E03.9 Hypothyroidism, unspecified; E78.5 Hyperlipidemia, unspecified; I95.9 Hypotension, unspecified; E83.52 Hypercalcemia; D64.9 Anemia, unspecified; F32.9 Major depressive disorder, single episode, unspecified; F41.9 Anxiety disorder, unspecified; Z86.73 Personal history of transient ischemic attack (TIA), and cerebral infarction without residual deficits; Z99.2 Dependence on renal dialysis; Z79.4 Long term (current) use of insulin; Z82.49 Family history of ischemic heart disease and other diseases of the circulatory system; Z83.3 Family history of diabetes mellitus
CPT/HCPCS: 36415; 71045; 76705; 80048; 80053; 82550; 82553; 82962; 83036; 83735; 83880; 84100; 84443; 84484; 85025; 93005; 93970; 99285; J0360; J1650; J1815; J2270